=== PATIENT | male | born 1985 | race African-American/Black ===

== ENCOUNTER 2017-09-01 13:00 | Emergency (ER) | payer MEDICAID, OTHER ==
[~2017-09-01] VITALS: Ht 175.3 cm; Wt 82.0 kg
[2017-09-01 13:08] VITALS: BP 122/73
[2017-09-01] MEDS ORDERED: PHEN100C4 PO (13:11)
== END 2017-09-01 16:25 | disposition left against medical advice (07) ==
LOC: ER 13:32
DX: M79.1 Myalgia (principal); Z53.21 Procedure and treatment not carried out due to patient leaving prior to being seen by health care provider

== ENCOUNTER 2021-08-29 10:19 | Emergency (ER) | payer MEDICAID ==
[~2021-08-29] VITALS: Ht 175.3 cm; Wt 89.0 kg
[~2021-08-29 10:19] MED LIST: PHEN100C4 PO
[2021-08-29 11:06] VITALS: BP 117/78
== END 2021-08-29 11:10 | disposition home or self-care (01) ==
LOC: ER 10:19
DX: R06.02 Shortness of breath (principal); F41.9 Anxiety disorder, unspecified; G40.909 Epilepsy, unspecified, not intractable, without status epilepticus; Z87.890 Personal history of sex reassignment; Z87.891 Personal history of nicotine dependence; Z79.899 Other long term (current) drug therapy
CPT/HCPCS: 99283; 99406